=== PATIENT | male | born 1980 | race Caucasian/White ===

== ENCOUNTER 2017-06-23 06:24 | Emergency (ER) | payer BC, OTHER ==
[~2017-06-23] VITALS: Ht 172.7 cm; Wt 84.0 kg
[~2017-06-23 06:24] MED LIST: ALBU8.5H3 INH
[2017-06-23 06:36] VITALS: Ht 172.7 cm; Wt 84.0 kg
[2017-06-23] MEDS ORDERED: predniSONE 20 MG TAB PO ONE (07:00)
[2017-06-23] MEDS ORDERED: KETOROLAC 30 MG INJ IM STA (07:00)
--- NOTE | 2017-06-23 07:55 | RADRPT ---
PROCEDURE: XR L-Spine. CLINICAL INDICATION: Low back pain with radicular symptoms. TECHNIQUE: AP, cone down, and lateral views of the lumbar spine. COMPARISON: None. FINDINGS: There is straightening of the normal lordosis of the lumbar spine. Vertebral body alignment is gross ly normal. There may be L5 pars defects, which are suboptimally evaluated on this study. Moderate di sc space narrowing is seen at L4-5 and L5-S1. There is degenerative enthesopathy at both levels. T he psoas shadows are unremarkable. IMPRESSION: 1. Moderate discogenic disease at L4-5 and L5-S1. 2. Possible of the pars defects, which are suboptimally evaluated on this study. Alignment, however , appears grossly normal. If warranted, further evaluation with oblique views of the lumbar spine or CT could be performed. RPTAT: HJAH .Bhakti Montalvo MD, MD Date Time Electronically viewed and signed by .Bhakti Montalvo MD, on 06/23/2017 07:55 .H/
--- NOTE | 2017-06-23 08:11 | ERD ---
ER Documentation Chief Complaint Chief Complaint back pain x 2 weeks HPI This a 37-year-old male presents the emergency department today complaining of back pain on the right side of his back for the past 2 weeks that goes into his right leg. The leg pain started a couple of days ago. States he is taking ibuprofen but he thinks it is making him "constipated. Denies any abdominal pain.. Denies any fevers or chills, loss of bowel or bladder control. States that he is homeless. States that he used meth and marijuana 4 days ago. ROS All systems reviewed and are negative except as per history of present illness. Medications Home Meds Active Scripts Prednisone* (Prednisone*) 20 Mg Tab, 40 MG PO DAILY for 4 Days, TAB Prov:LOUANN GARCIA PA-C 06/23/17 Polyethylene Glycol* (Miralax*) 17 Gm Powd.pack, 17 GM PO DAILY, #14 Prov:LOUANN GARCIA PA-C 06/23/17 Naproxen* (Naprosyn*) 500 Mg Tablet, 500 MG PO BID Y for PAIN AND/OR INFLAMMATION, #30 TAB Prov:LOUANN GARCIA PA-C 06/23/17 Albuterol Sulfate* (Proair HFA*) 8.5 Gm Hfa.aer.ad, 2 PUFF INH Q6H Y for WHEEZING AND SOB, #1 INHALER Prov:KEVAN HOLLY MD 07/30/15 Albuterol Sulfate* (Proair HFA*) 8.5 Gm Hfa.aer.ad, 2 PUFF INH Q6H Y for WHEEZING AND SOB, #1 INHALER Prov:KEVAN HOLLY MD 07/30/15 Allergies Allergies: Coded Allergies: No Known Allergy (Verified , 06/23/17) PMhx/Soc Medical and Surgical Hx: pt denies Medical Hx, pt denies Surgical Hx History of Surgery: No Anesthesia Reaction: No Hx Neurological Disorder: No Hx Respiratory Disorders: No Hx Cardiac Disorders: No Hx Psychiatric Problems: No Hx Miscellaneous Medical Probl: No Hx Alcohol Use: Yes (beers) Hx Substance Use: Yes (smoke weed) Hx Tobacco Use: Yes Smoking Status: Current every day smoker Physical Exam Vitals Vital Signs Date Time Temp Pulse Resp B/P Pulse Ox O2 Delivery O2 Flow Rate FiO2 06/23/17 06:36 97.8 94 18 151/94 97 Physical Exam Const: NAD Head: Atraumatic Eyes: Normal Conjunctiva ENT: Normal External Ears, Nose and Mouth. Neck: Full range of motion..~ No meningismus. Resp: Clear to auscultation bilaterally Cardio: Regular rate and rhythm, no murmurs Abd: Soft, non tender, non distended. Normal bowel sounds Skin: No petechiae or rashes Back: Lumbar spine midline tenderness. Right-sided paraspinal tenderness. Positive straight leg raise. Pulses 2+. Distal neurovascularly intact. Ext: No cyanosis, or edema Neur: Awake and alert Psych: Normal Mood and Affect Results 24 hrs Current Medications Medications (Trade) Dose Ordered Sig/Lisa Route PRN Reason Start Time Stop Time Status Last Admin Dose Admin Ketorolac Tromethamine (Toradol) 30 mg ONCE STAT IM 06/23/17 07:00 06/23/17 07:01 DC 06/23/17 07:16 Prednisone (Prednisone) 60 mg ONCE ONCE PO 06/23/17 07:00 06/23/17 07:01 DC 06/23/17 07:17 DIAGNOSTIC IMAGING REPORT Patient: KEVAN LAWRENCE : 1980 Age: 37 Sex: M MR #: [id number] DOS: 06/23/17 0000 Ordering MD: LOUANN GARCIA PA-C Location: [facility] Room/Bed: PROCEDURE: XR L-Spine. CLINICAL INDICATION: Low back pain with radicular symptoms. TECHNIQUE: AP, cone down, and lateral views of the lumbar spine. COMPARISON: None. FINDINGS: There is straightening of the normal lordosis of the lumbar spine. Vertebral body alignment is grossly normal. There may be L5 pars defects, which are suboptimally evaluated on this study. Moderate disc space narrowing is seen at L4-5 and L5-S1. There is degenerative enthesopathy at both levels. The psoas shadows are unremarkable. IMPRESSION: 1. Moderate discogenic disease at L4-5 and L5-S1. 2. Possible of the pars defects, which are suboptimally evaluated on this study. Alignment, however, appears grossly normal. If warranted, further evaluation with oblique views of the lumbar spine or CT could be performed. RPTAT: HJAH .Bhakti Montalvo MD, Date Time Electronically viewed and signed by .Bhakti Montalvo MD, on 06/23/2017 07:55 .H/ CC: LOUANN GARCIA PA-C DIAGNOSTIC IMAGING REPORT Patient: KEVAN LAWRENCE : 1980 Age: 37 Sex: M MR #: [id number] DOS: 06/23/17 0000 Ordering MD: LOUANN GARCIA PA-C Location: [facility] Room/Bed: PROCEDURE: CT Lumbar Spine. CLINICAL INDICATION: Low back pain with right radicular symptoms. TECHNIQUE: The study was performed on a multidetector CT scanner. Volumetric data was obtained through the lumbar spine and reformatted in the axial plane. Sagittal and coronal reformations were created from the raw axial data. One or more the following does reduction techniques were utilized: Automated exposure control, adjustment of the mA/ or kV according to patient's size, or use of iterative reconstruction technique. The images were reviewed on a PACS workstation. CTDI 22.43 mGy. DLP 698.47 mGy- cm. DICOM images are available. COMPARISON: Lumbar spine radiograph of the same day. FINDINGS: There is straightening of normal lumbar lordosis. There is 4 mm retrolisthesis at L4-5. The vertebral body heights are preserved. There is no significant paravertebral soft tissues swelling or mass. T12-L1: The disk is mildly decreased in height. No significant disk bulge or protrusion is seen. The central canal and neural foramina appear adequately patent. L1-L2: The disk is mildly decreased in height. No significant disk bulge or protrusion is seen. The central canal and neural foramina appear adequately patent. L2-L3: The disk is mildly decreased in height. No significant disk bulge or protrusion is seen. The central canal and neural foramina appear adequately patent. L3-L4: The disk is mildly decreased in height. There is mild diffuse disc bulge which contributes to mild spinal canal narrowing. The AP diameter of the spinal canal measures 9 mm. Mild bilateral facet arthropathy is noted. These contribute to mild bilateral foraminal narrowing. L4-L5: The disk is moderately decreased in height. There is 4 mm retrolisthesis. There is 4 mm diffuse disc bulge which contributes to moderate spinal canal narrowing. The AP diameter of the spinal canal measures 7 mm. Mild bilateral facet arthropathy is noted. These contribute to moderate to severe bilateral foraminal and lateral recess narrowing. L5-S1: The disk is moderately decreased in height with endplate irregularities. There is 4 mm diffuse disc bulge which contributes to moderate spinal canal narrowing. The AP diameter of the spinal canal measures 7 mm. Mild bilateral facet arthropathy is noted. These contribute to severe bilateral foraminal and moderate to severe lateral recess stenosis with probable impingement on exiting L5 and traversing S1 nerve roots. IMPRESSION: 1. Multilevel mild to moderate discogenic disease more pronounced at L4-5 and L5-S1. 2. At L3-L4, mild spinal canal narrowing. Mild bilateral foraminal narrowing. 3. At L4-L5, 4 mm diffuse disc bulge which contributes to moderate spinal canal narrowing. Moderate to severe bilateral foraminal and lateral recess narrowing. 4. At L5-S1, 4 mm diffuse disc bulge which contributes to moderate spinal canal narrowing. Severe bilateral foraminal and moderate to severe lateral recess stenosis with probable impingement on exiting L5 and traversing S1 nerve roots. 5. A straightening of normal lumbar lordosis. 4 mm retrolisthesis at L4-5. RPTAT: HH .Albert Parrish MD, MD Date Time Electronically viewed and signed by .Albert Parrish MD, MD on 06/23/2017 09: 04 .N/ CC: LOUANN GARCIA PA-C [facility] [place] This a 37-year-old male presents the emergency department today complaining of right-sided back pain for the past 2 weeks and leg pain for the past couple of days. On physical exam patient had some lumbar spine midline tenderness and right-sided paraspinal tenderness and given his radicular symptoms I did obtain images. Per the radiology report images of the lumbar spine show moderate discogenic disease at L4 and 5 and L5 and S1 there were possible pars defects which were not evaluated clearly on the x-ray. There is also degenerative changes at both levels. I did have some concern as to the patient's history and the possible pars defects coming from an acute injury I did obtain a CT scan of the lumbar spine CT scan lumbar spine shows multilevel mild to moderate discogenic disease more pronounced L4 and 5 and L5 and S1. L3 and L4 there is mild spinal canal narrowing and mild bilateral foraminal narrowing. There is L4-L5 for the millimeter disc bulge which contributes to moderate spinal canal narrowing. There is moderate to severe bilateral foraminal or lateral recess narrowing. At L5 and S1 there is a 4 mm diffuse disc bulges contribute to moderate spinal canal narrowing there is severe bilateral foraminal moderate to severe lateral recess stenosis with probable impingement on exiting L5 transverse S1 nerve roots. There is a 4 mm retrolisthesis of L4 and L5. Patient symptoms at this time is consistent with back pain likely secondary to degenerative disc disease and degenerative changes and herniated disks. I have explained this to the patient. Patient was given Toradol and prednisone here in the emergency department. He will be given a prescription for Naprosyn and prednisone for home. I have instructed him to follow-up with a primary care doctor for referral to orthopedic and medical staff specialist. Patient is afebrile and otherwise well-appearing have low suspicion for cauda equina or abscess. He has no loss of bowel or bladder control. Patient did indicate that he is homeless and was given homeless resources. I also do not feel the patient would benefit from narcotics at this time given his history of drug abuse. Patient was already ambulating with a cane. Patient did indicate that he thought he was constipated from "all the medications he was taking. He has no abdominal pain on physical exam and I do not feel he requires further workup or imaging. Patient is given a prescription for MiraLAX. At this time the patient is stable for discharge and outpatient management. Patient should follow up with their PCP in the next 1-2 days. They may return to the emergency department sooner for any persistent or worsening of symptoms. Patient understood and agreed with the plan. Departure Diagnosis: Primary Impression: Back pain Back pain location: low back pain Chronicity: unspecified Back pain laterality: right Sciatica presence: with sciatica Sciatica laterality: sciatica of right side Qualified Code: M54.41 - Right-sided low back pain with right-sided sciatica, unspecified chronicity Condition: LOUANN Smalls PA-C Jun 23, 2017 08:11
--- NOTE | 2017-06-23 09:04 | RADRPT ---
PROCEDURE: CT Lumbar Spine. CLINICAL INDICATION: Low back pain with right radicular symptoms. TECHNIQUE: The study was performed on a multidetector CT scanner. Volumetric data was obtained th rough the lumbar spine and reformatted in the axial plane. Sagittal and coronal reformations were cr eated from the raw axial data. One or more the following does reduction techniques were utilized: Au tomated exposure control, adjustment of the mA/ or kV according to patient's size, or use of iterati ve reconstruction technique. The images were reviewed on a PACS workstation. CTDI 22.43 mGy. DLP 698.47 mGy-cm. DICOM images are available. COMPARISON: Lumbar spine radiograph of the same day. FINDINGS: There is straightening of normal lumbar lordosis. There is 4 mm retrolisthesis at L4-5. The vertebra l body heights are preserved. There is no significant paravertebral soft tissues swelling or mass. T12-L1: The disk is mildly decreased in height. No significant disk bulge or protrusion is seen. Th e central canal and neural foramina appear adequately patent. L1-L2: The disk is mildly decreased in height. No significant disk bulge or protrusion is seen. The central canal and neural foramina appear adequately patent. L2-L3: The disk is mildly decreased in height. No significant disk bulge or protrusion is seen. The central canal and neural foramina appear adequately patent. L3-L4: The disk is mildly decreased in height. There is mild diffuse disc bulge which contributes t o mild spinal canal narrowing. The AP diameter of the spinal canal measures 9 mm. Mild bilateral fac et arthropathy is noted. These contribute to mild bilateral foraminal narrowing. L4-L5: The disk is moderately decreased in height. There is 4 mm retrolisthesis. There is 4 mm diffu se disc bulge which contributes to moderate spinal canal narrowing. The AP diameter of the spinal ca nal measures 7 mm. Mild bilateral facet arthropathy is noted. These contribute to moderate to severe bilateral foraminal and lateral recess narrowing. L5-S1: The disk is moderately decreased in height with endplate irregularities. There is 4 mm diffus e disc bulge which contributes to moderate spinal canal narrowing. The AP diameter of the spinal can al measures 7 mm. Mild bilateral facet arthropathy is noted. These contribute to severe bilateral fo raminal and moderate to severe lateral recess stenosis with probable impingement on exiting L5 and t raversing S1 nerve roots. IMPRESSION: 1. Multilevel mild to moderate discogenic disease more pronounced at L4-5 and L5-S1. 2. At L3-L4, mild spinal canal narrowing. Mild bilateral foraminal narrowing. 3. At L4-L5, 4 mm diffuse disc bulge which contributes to moderate spinal canal narrowing. Moderate to severe bilateral foraminal and lateral recess narrowing. 4. At L5-S1, 4 mm diffuse disc bulge which contributes to moderate spinal canal narrowing. Severe bilateral foraminal and moderate to severe lateral recess stenosis with probable impingement on exit ing L5 and traversing S1 nerve roots. 5. A straightening of normal lumbar lordosis. 4 mm retrolisthesis at L4-5. RPTAT: HH .Albert Parrish MD, Date Time Electronically viewed and signed by .Albert Parrish MD, MD on 06/23/2017 09:04 .N/
[2017-06-23] MEDS ORDERED: PRED20TA PO (09:52)
[2017-06-23] MEDS ORDERED: POLY17PO6 PO (09:52)
[2017-06-23] MEDS ORDERED: NAPR-260 PO (09:52)
== END 2017-06-23 10:05 | disposition home or self-care (01) ==
LOC: FTE 06:24
DX: M54.41 Lumbago with sciatica, right side (principal); F17.210 Nicotine dependence, cigarettes, uncomplicated
CPT/HCPCS: 72100; 72131; 96372; J1885; J7512; Z7502